=== PATIENT | female | born 1950 | race Hispanic/Latino ===

== ENCOUNTER 2018-11-22 11:22 | Emergency (ER) | payer SELFPAY ==
[~2018-11-22] VITALS: Ht 152.4 cm; Wt 68.9 kg
--- OUTSIDE RECORDS SUMMARY | 2018-11-22 11:28 | XMS REPORT | Summary of Care ---
Author Author [facility] Organization [facility] Address Unknown Phone Unavailable Encounter HQ Magaly_chandrika(FIN) [id number] Date(s): 07/10/17 - 07/11/17 [facility] [address], [address] [place] [address]- [phone] Vital Signs No data available for this section Problem List Condition Effective Dates Status Health Status Informant Hypertension, Active benign(Confirmed) Cardiac pacemaker in Active situ(Confirmed) Hx of Active hysterectomy(Confirm ed) Itching(Confirmed) Active Major Active depression(Confirmed ) Hyperlipidemia, Active mixed(Confirmed) Obesity(Confirmed) Active Right wrist Active pain(Confirmed) Palpitations(Confirm Active ed) Allergies, Adverse Reactions, Alerts Substance Reaction Severity Status lisinopril Active Ambien Active TraZODone Hydrochloride Active Medications hydrALAZINE 25 mg oral tablet 25 mg=1 tab, PO, Q8H, as needed if SBP>170 and DBP>100, # 270 tab, 1 Refill(s), Pharmacy: [facility] [id number] Start Date: 07/11/17 Stop Date: 08/13/17 Status: Discontinued hydrochlorothiazide 25 mg oral tablet 25 mg=1 tab, PO, Daily, # 90 tab, 1 Refill(s), Pharmacy: [facility] 06 600 Start Date: 07/11/17 Stop Date: 08/13/17 Status: Discontinued losartan 100 mg oral tablet 100 mg=1 tab, PO, Daily, # 90 tab, 1 Refill(s), Pharmacy: [facility] 0 [id number] Start Date: 07/11/17 Stop Date: 08/13/17 Status: Discontinued metoprolol tartrate 50 mg oral tablet 50 mg=1 tab, PO, BID, # 180 tab, 1 Refill(s), Pharmacy: [facility] 066 [id number] Start Date: 07/11/17 Stop Date: 08/13/17 Status: Discontinued sertraline 50 mg oral tablet 50 mg=1 tab, PO, Daily, # 90 tab, 1 Refill(s), Pharmacy: [facility] Start Date: 07/11/17 Stop Date: 08/13/17 Status: Discontinued simvastatin 20 mg oral tablet 20 mg=1 tab, PO, Daily, # 90 tab, 1 Refill(s), Pharmacy: [facility] 135 Start Date: 07/11/17 Stop Date: 08/13/17 Status: Discontinued Results No data available for this section Immunizations Given and Recorded Vaccine Date Status Refusal Reason pneumococcal 13-valent vaccine1 04/18/17 Given 1Result Comment: Patient waited 15 minutes, no allergic reaction. Procedures Procedure Date Related Diagnosis Body Site Status Mammogram 09/17/17 Completed Pacemaker care Completed Partial hysterectomy Completed Social History Social History Type Response Substance Abuse Use: None. Exercise Exercise duration: 30. Exercise frequency: 5-6 times/week. Exercise type: Walking. Alcohol Never Smoking Status Never smoker; Type: Cigarettes; Exposure to Tobacco Smoke None; Cigarette Smoking Last 365 Days No; Reg Smoking Cessation Counseling No entered on: 08/13/17 Assessment and Plan No data available for this section
--- OUTSIDE RECORDS SUMMARY | 2018-11-22 11:28 | XMS REPORT ---
Author Author Senia Borges Organization [employer] Address Unknown Phone Unavailable Care Team Providers Care Pathology Secretary/Transcriptionist Name Role Phone Senia Borges Unavailable Allergies, Adverse Reactions, Alerts Substance Reaction Event Type Trazodone HCl Info Not Available Drug Allergy Lisinopril Info Not Available Drug Allergy Ambien Info Not Available Drug Allergy Encounters Encounter Location Date New patient here to [facility] Apr 12, 2015 patient here to follow up on labs [facility] Apr 21, 2015 Patient here for check up [facility] Jul 12, 2015 Problems Problem Type Condition ICD-9 Code Onset Dates Condition Status Problem Chronic pain G89.29 Active Problem Insomnia G47.00 Active Problem Arthritis M19.90 Active Problem Depression with anxiety F41.8 Active Problem Low vitamin D level E55.9 Active Problem Dizziness R42 Active Problem Hyperlipidemia E78.5 Active Problem Depression F32.9 Active Problem Pacemaker Z95.0 Active Problem Hypertension I10 Active Assessment Dizziness R42 Active Assessment Pacemaker Z95.0 Active Assessment Hyperlipidemia E78.5 Active Assessment Depression F32.9 Active Assessment Hypertension I10 Active Medications Medication Code System Code Instructions Start Date End Date Status Dosage Losartan Potassium [facility] [address]-51 25 MG Orally Once a day Active 3 tablets Metoprolol Tartrate [facility] [address]-58 25 MG Orally Twice a day Active 1 tablet Ergocalciferol [facility] [address]-86 20832 UNIT Orally once a week Apr 21, 2015 Jul 20, 2015 Active 1 capsule Sertraline HCl [facility] [address]-85 100 mg Orally Once a day Active 1 tablet HydrOXYzine HCl [facility] [address]-66 10 mg Orally every 8 hrs as needed Apr 21, 2015 Active as directed Hydrochlorothiazide [facility] [address]-24 25 MG Orally Once a day Active 1 tablet Simvastatin [facility] [address]-61 20 mg Orally Once a day Active 1 tablet in the evening Social History Social History Element Qualifiers Date Reported Tobacco Use: . Are you a: never smoker Jul 12, 2015 Use of recreational / street drugs? . Answer: No Jul 12, 2015 Do you have pets? . Status: No Jul 12, 2015 Caffeine intake? . Status: Yes, What type: Coffee, How often? Daily Jul 12, 2015 Do you exercise? . Answer: Yes, Type: walking, How often? Daily Jul 12, 2015 Do you drink alcohol? . Status: No Jul 12, 2015 Vital Signs Date/Time: Jul 12, 2015 Weight 153.2 lbs Height 60 in Temperature 98.5 F Cardiac Monitoring Heart Rate 73 /min Blood Pressure Diastolic 83 mm Hg Blood Pressure Systolic 169 mm Hg Summary Purpose [employer] Submission
--- OUTSIDE RECORDS SUMMARY | 2018-11-22 11:28 | XMS REPORT | Summary of Care ---
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(Confirmed) Left cervical Active lymphadenopathy(Conf irmed) Hx of Active hysterectomy(Confirm ed) Itching(Confirmed) Active Major Active depression(Confirmed ) Hyperlipidemia, Active mixed(Confirmed) Obesity(Confirmed) Active Right wrist Active pain(Confirmed) Palpitations(Confirm Active ed) Allergies, Adverse Reactions, Alerts Substance Reaction Severity Status lisinopril Active Ambien Active TraZODone Hydrochloride Active Medications No data available for this section Results No data available for this section Immunizations Given and Recorded Vaccine Date Status Refusal Reason pneumococcal 13-valent vaccine1 04/18/17 Given 1Result Comment: Patient waited 15 minutes, no allergic reaction. Procedures Procedure Date Related Diagnosis Body Site Status Replacement of cardiac pacemaker 03/15/18 Completed Mammogram 09/17/17 Completed Pacemaker care Completed Partial hysterectomy Completed Social History Social History Type Response Substance Abuse Use: None. Exercise Exercise duration: 30. Exercise frequency: 5-6 times/week. Exercise type: Walking. Alcohol Never Smoking Status Never smoker; Type: Cigarettes; Exposure to Tobacco Smoke None; Cigarette Smoking Last 365 Days No; Reg Smoking Cessation Counseling No entered on: 04/15/18 Assessment and Plan No data available for this section
--- OUTSIDE RECORDS SUMMARY | 2018-11-22 11:28 | XMS REPORT | Summary of Care ---
Author Author [facility] Organization [facility] Address Unknown Phone Unavailable Encounter HQ Encntr_alivishal(FIN) [id number] Date(s): 11/01/18 - 11/02/18 [facility] 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(Confirmed) Left cervical Active lymphadenopathy(Conf irmed) Hx of Active hysterectomy(Confirm ed) Itching(Confirmed) Active Major Active depression(Confirmed ) Hyperlipidemia, Active mixed(Confirmed) Obesity(Confirmed) Active Left leg Active pain(Confirmed) Right wrist Active pain(Confirmed) Palpitations(Confirm Active ed) Allergies, Adverse Reactions, Alerts Substance Reaction Severity Status lisinopril Active Ambien Active TraZODone Hydrochloride Active Medications hydrochlorothiazide 25 mg oral tablet =1 tab, PO, Daily, # 90 tab, [facility] Start Date: 11/01/18 Status: Ordered Metoprolol Tartrate 50 mg oral tablet =1 tab, PO, BID, # 180 tab, [facility] Start Date: 11/01/18 Status: Ordered simvastatin 20 mg oral tablet =1 tab, PO, Daily, # 90 tab, Pharm[facility] Start Date: 11/01/18 Status: Ordered Results No data available for this section [...] Reg Smoking Cessation Counseling No entered on: 08/13/18 Assessment and Plan No data available for this section
--- OUTSIDE RECORDS SUMMARY | 2018-11-22 11:28 | XMS REPORT | Summary of Care ---
Author Author [facility] Organization [facility] Address Unknown Phone Unavailable Encounter HQ Kenzie(FIN) [id number] Date(s): 08/13/18 - 08/13/18 [facility] [address], [address] [place] [address]- [phone] Discharge Disposition: Home or Self Care Attending Physician: Blossom Romero MD Vital Signs Most recent to 1 oldest [Reference Range]: Height 152.4 cm (08/13/18 8:10 AM) Temperature Oral 97.9 DegF [96.4-99.1 DegF] (08/13/18 8:10 AM) Blood Pressure 158/84 mmHg [90-140/60-90 mmHg] *HI* (08/13/18 8:10 AM) Respiratory Rate 14 BRMIN [14-20 BRMIN] (08/13/18 8:10 AM) Peripheral Pulse 60 bpm Rate [60-100 bpm] (08/13/18 8:10 AM) Weight 69.659 kg (08/13/18 8:10 AM) Body Mass Index 29.99 m2 (08/13/18 8:10 AM) Problem List Condition Effective Dates Status Health [...] Ambien Active TraZODone Hydrochloride Active Medications No Known Medications Results No data available for this section [...]
--- OUTSIDE RECORDS SUMMARY | 2018-11-22 11:28 | XMS REPORT | Continuity of Care Document ---
Author Author [facility] Interface Address Unknown Phone Unavailable Problems Problem Status Onset Date Classification Date Reported Comments Source Hypertension Active Problem 07/14/2015 [facility] [place] [facility] Arthritis Active Problem 07/14/2015 [facility] [place] [facility] Chronic pain Active Problem 07/14/2015 [facility] [place] [facility] Low vitamin D level Active Problem 07/14/2015 [facility] [place] [facility] Primary Pacemaker Active Problem 07/14/2015 [facility] Primary Depression with anxiety Active Problem 07/14/2015 [facility] Depression Active Problem 07/14/2015 [facility] Insomnia Active Problem 07/14/2015 [facility] Primary Hyperlipidemia Active Problem 07/14/2015 [facility] Primary UTI Active Diagnosis 04/22/2015 [facility] Primary Breast cancer screening Active Diagnosis 04/13/2015 [facility] Primary Dizziness Active Problem 07/14/2015 [facility] Hypertension, benign Active Problem 11/04/2018 [facility] Cardiac pacemaker in situ Active Problem 11/04/2018 [facility] Left cervical lymphadenopathy Active Problem 11/04/2018 [facility] Hx of hysterectomy Active Problem 11/04/2018 [facility] Itching Active Problem 11/04/2018 [facility] Major depression Active Problem 11/04/2018 [facility] Hyperlipidemia, mixed Active Problem 11/04/2018 [facility] Obesity Active Problem 11/04/2018 [facility] Right wrist pain Active Problem 11/04/2018 [facility] Palpitations Active Problem 11/04/2018 [facility] Left leg pain Active Problem 11/04/2018 [facility] Medications Medication Details Route Status Patient Instructions Ordering Provider Order Date Source Hydrochlorothiazide 25 MG Oral Tablet =1 tab, PO, Daily, # 90 tab, Pharmacy: [facility] Active 11/02/2018 [facility] simvastatin 20 mg oral tablet =1 tab, PO, Daily, # 90 tab, [facility]/02/2018 [facility] Metoprolol Tartrate 50 mg oral tablet =1 tab, PO, BID, # 180 tab, [facility] 11/02/2018 [facility] simvastatin 20 mg oral tablet 20 mg=1 tab, PO, Daily, # 90 tab, 1 Refill(s), Pharmacy: [facility] No Longer Active 04/15/2018 [facility] sertraline 50 mg oral tablet 50 mg=1 tab, PO, Daily, # 90 tab, 1 Refill(s), Pharmacy: [facility] No Longer Active 04/15/2018 [facility] Metoprolol Tartrate 50 mg oral tablet 50 mg=1 tab, PO, BID, # 180 tab, 1 Refill(s), Pharmacy: [facility] No Longer Active 04/15/2018 [facility] losartan 100 mg oral tablet 100 mg=1 tab, PO, Daily, # 90 tab, 1 Refill(s), Pharmacy: [facility] Active 04/15/2018 [facility] Hydrochlorothiazide 25 MG Oral Tablet 25 mg=1 tab, PO, Daily, # 90 tab, 1 Refill(s), Pharmacy: [facility] No Longer Active 04/15/2018 [facility] Hydralazine Hydrochloride 25 MG Oral Tablet 25 mg=1 tab, PO, Q8H, as needed if SBP>170 and DBP>100, # 270 tab, 1 Refill(s), Pharmacy: [facility] Active 04/15/2018 [facility] Clobetasol Propionate 0.0005 MG/MG Topical Ointment 1 appl, TOP, Daily, # 30 gm, 1 Refill(s), [id number] 08/13/2017 [facility] simvastatin 20 mg oral tablet 20 mg=1 tab, PO, Daily, # 90 tab, 1 Refill(s), Pharmacy: [facility] Active 08/13/2017 [facility] sertraline 50 mg oral tablet 50 mg=1 tab, PO, Daily, # 90 tab, 1 Refill(s), Pharmacy: [facility] Active 08/13/2017 [facility] metoprolol tartrate 50 mg oral tablet 50 mg=1 tab, PO, BID, # 180 tab, 1 Refill(s), Pharmacy: [facility] Active 08/13/2017 [facility] losartan 100 mg oral tablet 100 mg=1 tab, PO, Daily, # 90 tab, 1 Refill(s), Pharmacy: [facility] Active 08/13/2017 [facility] Hydrochlorothiazide 25 MG Oral Tablet 25 mg=1 tab, PO, Daily, # 90 tab, 1 Refill(s), Pharmacy: [facility] Active 08/13/2017 [facility] Hydralazine Hydrochloride 25 MG Oral Tablet 25 mg=1 tab, PO, Q8H, as needed if SBP>170 and DBP>100, # 270 tab, 1 Refill(s), Pharmacy: [facility] Active 08/13/2017 [facility] simvastatin 20 mg oral tablet 20 mg=1 tab, PO, Daily, # 90 tab, 1 Refill(s), Pharmacy: [id number] No Longer Active 07/11/2017 [facility] losartan 100 mg oral tablet 100 mg=1 tab, PO, Daily, # 90 tab, 1 Refill(s), Pharmacy: [id number] No Longer Active 07/11/2017 [facility] sertraline 50 mg oral tablet 50 mg=1 tab, PO, Daily, # 90 tab, 1 Refill(s), Pharmacy: [facility] [id number] No Longer Active 07/11/2017 [facility] metoprolol tartrate 50 mg oral tablet 50 mg=1 tab, PO, BID, # 180 tab, 1 Refill(s), Pharmacy: [facility] [id number] No Longer Active 07/11/2017 [facility] Hydrochlorothiazide 25 MG Oral Tablet 25 mg=1 tab, PO, Daily, # 90 tab, 1 Refill(s), Pharmacy: [facility] [id number] No Longer Active 07/11/2017 [facility] Hydralazine Hydrochloride 25 MG Oral Tablet 25 mg=1 tab, PO, Q8H, as needed if SBP>170 and DBP>100, # 270 tab, 1 Refill(s), Pharmacy: [facility] [id number] No Longer Active 07/11/2017 [facility] metoprolol tartrate 50 mg oral tablet 50 mg=1 tab, PO, BID, 0 Refill(s) Active 04/18/2017 [facility] Hydralazine Hydrochloride 25 MG Oral Tablet 25 mg=1 tab, PO, Q8H, as needed if SBP>170 and DBP>100, 0 Refill(s) Active 04/18/2017 [facility] HydrOXYzine HCl as directed Orally Active 10 mg Orally every 8 hrs as needed [facility] 04/21/[address] [facility] Ciprofloxacin HCl 1 tablet Orally Active 500 mg Orally Twice a day [facility] 04/21/[address] [facility] Ergocalciferol 1 capsule Orally Active 57643 UNIT Orally once a week [facility] 04/21/[address] [facility] Hydrochlorothiazide 1 tablet Orally Active 25 MG Orally Once a day [facility] Sertraline HCl 1 tablet Orally Active 100 mg Orally Once a day [facility] Clonazepam 1 tablet Orally No Longer Active 0.5 MG Orally as needed (prn) [facility] Losartan Potassium 3 tablets Orally Active 25 MG Orally Once a day [facility] Metoprolol Tartrate 1 tablet Orally Active 25 MG Orally Twice a day [facility] Simvastatin 1 tablet in the evening Orally Active 20 mg Orally Once a day [facility] Sertraline HCl 1 tablet Orally Active 50 MG Orally Once a day [facility] Allergies, Adverse Reactions, Alerts Substance Category Reaction Severity Reaction type Status Date Reported Comments Source Trazodone HCl Adverse Reaction Info Not Available Adverse Reaction Active 07/12/[address] [facility] Lisinopril Adverse Reaction Info Not Available Adverse Reaction Active 07/12/[address] [facility] Ambien Assertion Drug allergy Active [facility] lisinopril Assertion Drug allergy Active [facility] TraZODone Hydrochloride Assertion Drug allergy Active [facility] Immunizations Immunization Date Given Site Status Last Updated Comments Source pneumococcal 13-valent vaccine<sup>1</sup> 04/18/2017 Left Deltoid completed [place] Result Comment: Patient waited 15 minutes, no allergic reaction. [facility] Results Order Name Results Value Reference Range Date Interpretation Comments Source Vital Signs Vital Sign Value Date Comments Source BMI Calculated 29.99 08/13/2018 [facility] Weight 69.659 08/13/2018 [facility] Height 152.4 cm 08/13/2018 [facility] Systolic (mm Hg) 158 08/13/2018 [facility] Diastolic (mm Hg) 84 08/13/2018 [facility] Heart Rate 60 08/13/2018 [facility] Respitory Rate 14 08/13/2018 [facility] Temperature Oral (F) 97.9 F 08/13/2018 [facility] Height 152.4 cm 04/15/2018 [facility] Weight 69.659 04/15/2018 [facility] BMI Calculated 29.99 04/15/2018 [facility] Systolic (mm Hg) 148 04/15/2018 [facility] Diastolic (mm Hg) 84 04/15/2018 [facility] Heart Rate 62 04/15/2018 [facility] Temperature Oral (F) 98.2 F 04/15/2018 [facility] Respitory Rate 15 04/15/2018 [facility] BMI Calculated 29.82 12/17/2017 [facility] Height 152.4 cm 12/17/2017 [facility] Weight 69.261 12/17/2017 [facility] Respitory Rate 14 12/17/2017 [facility] Temperature Oral (F) 97.8 F 12/17/2017 [facility] Systolic (mm Hg) 152 12/17/2017 [facility] Diastolic (mm Hg) 84 12/17/2017 [facility] Heart Rate 60 12/17/2017 [facility] BMI Calculated 29.58 08/13/2017 [facility] Weight 68.693 08/13/2017 [facility] Height 152.4 cm 08/13/2017 [facility] Temperature Oral (F) 96.6 F 08/13/2017 [facility] Respitory Rate 14 08/13/2017 [facility] Heart Rate 60 08/13/2017 [facility] Systolic (mm Hg) 165 08/13/2017 [facility] Diastolic (mm Hg) 85 08/13/2017 [facility] Height 152.4 cm 04/18/2017 [facility] Weight 69.261 04/18/2017 [facility] BMI Calculated 29.82 04/18/2017 [facility] Temperature Oral (F) 97.0 F 04/18/2017 [facility] Heart Rate 60 04/18/2017 [facility] Respitory Rate 14 04/18/2017 [facility] Systolic (mm Hg) 150 04/18/2017 [facility] Diastolic (mm Hg) 81 04/18/2017 [facility] Weight 153.2 07/12/2015 [facility] Height 60 07/12/2015 [facility] Temperature Oral (F) 98.5 F 07/12/2015 [facility] Heart Rate 73 07/12/2015 [facility] Diastolic (mm Hg) 83 07/12/2015 [facility] Systolic (mm Hg) 169 07/12/2015 [facility] Weight 154.0 04/21/2015 [facility] Height 60 04/21/2015 [facility] Temperature Oral (F) 98.7 F 04/21/2015 [facility] Heart Rate 96 04/21/2015 [facility] Diastolic (mm Hg) 78 04/21/2015 [facility] Systolic (mm Hg) 126 04/21/2015 [facility] Weight 152.9 04/12/2015 [facility] Height 60 04/12/2015 [facility] Temperature Oral (F) 98.5 F 04/12/2015 [facility] Heart Rate 82 04/12/2015 [facility] Diastolic (mm Hg) 80 04/12/2015 [facility] Systolic (mm Hg) 136 04/12/2015 [facility] Encounters Location Location Details Encounter Type Encounter Number Reason For Visit Attending Provider ADM Date DC Date Status Source [facility] New patient here to est care [id number] 04/12/2015 04/12/2015 [facility] New patient here to est care [id number] 04/12/2015 04/12/2015 [facility] New patient here to est care [id number] 04/12/2015 04/12/2015 [facility] Care patient here to follow up on labs [id number] 04/21/2015 04/21/2015 [facility] Primary Care patient here to follow up on labs [id number] 04/21/2015 04/21/2015 [facility] Patient here for check up [id number] 07/12/2015 07/12/2015 [facility] Outpatient [id number] JEFF STARK 12/28/2015 Active [facility] Outpatient [id number] JEFF STARK 05/01/2016 Active [facility] [id number] JEFF STARK 08/28/2016 [facility] [id number] JEFF STARK 12/27/2016 [facility] [id number] JEFF STARK 04/18/2017 Active [facility] [id number] Jeff Stark 04/18/2017 04/19/2017 [facility] Group [facility] Primary Care [facility] Phone Message [id number] 07/10/2017 07/12/2017 [facility] Outpatient [id number] JEFF STARK 08/13/2017 [facility] [id number] Jeff Stark 08/13/2017 08/14/2017 [facility] Outpatient [id number] JEFF STARK 12/17/2017 Active [facility] Primary Care [facility] Outpatient [id number] Jeff Stark 12/17/2017 12/18/2017 [facility] Group [facility] Primary Care [facility] Phone Message [id number] 01/09/2018 01/11/2018 [facility] Outpatient [id number] JEFF STARK 04/15/2018 Active [facility] [id number] Jeff Stark 04/15/2018 04/16/2018 [facility] Outpatient [id number] JEFF STARK 08/13/2018 Active [facility] Primary Care [facility] Outpatient [id number] Jeff Stark 08/13/2018 08/14/2018 Medical Group [facility] Primary Care [facility] Phone Message [id number] 09/06/2018 09/08/2018 [facility] Group [facility] Primary Care [facility] Between Visit [id number] 11/02/2018 11/03/2018 [facility] Outpatient [id number] JEFF STARK 12/17/2018 Active [facility] Procedures Procedure Code Date Perfomer Comments Source Replacement of cardiac pacemaker [id number] 03/15/2018 [facility] Mammogram [id number] 09/17/2017 [facility] Mammogram [id number] 09/11/2016 [facility] Pacemaker care [id number] [facility] Partial hysterectomy [id number] [facility]
--- OUTSIDE RECORDS SUMMARY | 2018-11-22 11:28 | XMS REPORT | Summary of Care ---
Author Author [facility] Organization [facility] Address Unknown Phone Unavailable Encounter HQ Magaly_chandrika(FIN) [id number] Date(s): 12/17/17 - 12/17/17 [facility] [address], [address] [place] [address]- [phone] Discharge Disposition: Home or Self Care Attending Physician: Blossom Romero MD Vital Signs Most recent to 1 oldest [Reference Range]: Height 152.4 cm (12/17/17 8:19 AM) Temperature Oral 97.8 DegF [96.4-99.1 DegF] (12/17/17 8:19 AM) Blood Pressure 152/84 mmHg [90-140/60-90 mmHg] *HI* (12/17/17 8:19 AM) Respiratory Rate 14 BRMIN [14-20 BRMIN] (12/17/17 8:19 AM) Peripheral Pulse 60 bpm Rate [60-100 bpm] (12/17/17 8:19 AM) Weight 69.261 kg (12/17/17 8:19 AM) Body Mass Index 29.82 m2 (12/17/17 8:19 AM) Problem List Condition Effective Dates Status [...]
--- OUTSIDE RECORDS SUMMARY | 2018-11-22 11:28 | XMS REPORT | Summary of Care ---
Author Author [facility] Organization [facility] Address Unknown Phone Unavailable Encounter HQ Kenzie(FIN) [id number] Date(s): 04/18/17 - 04/18/17 [facility] [address], [address] [place] [address]- [phone] Discharge Disposition: Home or Self Care Attending Physician: Blossom Romero MD Vital Signs Most recent to 1 oldest [Reference Range]: Height 152.4 cm (04/18/17 8:06 AM) Temperature Oral 97.0 DegF [96.4-99.1 DegF] (04/18/17 8:06 AM) Blood Pressure 150/81 mmHg [90-140/60-90 mmHg] *HI* (04/18/17 8:06 AM) Respiratory Rate 14 BRMIN [14-20 BRMIN] (04/18/17 8:06 AM) Peripheral Pulse 60 bpm Rate [60-100 bpm] (04/18/17 8:06 AM) Weight 69.261 kg (04/18/17 8:06 AM) Body Mass Index 29.82 m2 (04/18/17 8:06 AM) Problem List Condition Effective Dates Status Health Status Informant Hypertension, Active benign(Confirmed) Cardiac pacemaker in Active situ(Confirmed) Hx of Active hysterectomy(Confirm ed) Itching(Confirmed) Active Major Active depression(Confirmed ) Hyperlipidemia, Active mixed(Confirmed) Obesity(Confirmed) Active Palpitations(Confirm Active ed) Allergies, Adverse Reactions, Alerts Substance Reaction Severity Status lisinopril Active Ambien Active TraZODone Hydrochloride Active Medications hydrALAZINE 25 mg oral tablet 25 mg=1 tab, PO, Q8H, as needed if SBP>170 and DBP>100, 0 Refill(s) Start Date: 04/18/17 Status: Ordered metoprolol tartrate 50 mg oral tablet 50 mg=1 tab, PO, BID, 0 Refill(s) Start Date: 04/18/17 Status: Ordered Results No data available for this section Immunizations Given and Recorded Vaccine Date Status Refusal Reason pneumococcal 13-valent vaccine1 04/18/17 Given 1Result Comment: Patient waited 15 minutes, no allergic reaction. Procedures Procedure Date Related Diagnosis Body Site Mammogram 09/11/16 Pacemaker care Partial hysterectomy Social History Social History Type Response Substance Abuse Use: None. Exercise Exercise duration: 30. Exercise frequency: 5-6 times/week. Exercise type: Walking. Alcohol Never Smoking Status Never smoker; Type: Cigarettes; Exposure to Tobacco Smoke None; Cigarette Smoking Last 365 Days No; Reg Smoking Cessation Counseling No Assessment and Plan No data available for this section
--- OUTSIDE RECORDS SUMMARY | 2018-11-22 11:28 | XMS REPORT | Summary of Care ---
Author Author [facility] Organization [facility] Address Unknown Phone Unavailable Encounter HQ Kenzie(FIN) [id number] Date(s): 04/15/18 - 04/15/18 [facility] [address] [place] [address]- Discharge Disposition: Home or Self Care Attending Physician: Blossom Romero MD Vital Signs Most recent to 1 oldest [Reference Range]: Height 152.4 cm (04/15/18 8:14 AM) Temperature Oral 98.2 DegF [96.4-99.1 DegF] (04/15/18 8:14 AM) Blood Pressure 148/84 mmHg [90-140/60-90 mmHg] *HI* (04/15/18 8:14 AM) Respiratory Rate 15 BRMIN [14-20 BRMIN] (04/15/18 8:14 AM) Peripheral Pulse 62 bpm Rate [60-100 bpm] (04/15/18 8:14 AM) Weight 69.659 kg (04/15/18 8:14 AM) Body Mass Index 29.99 m2 (04/15/18 8:14 AM) Problem List Condition Effective Dates Status [...] DBP>100, # 270 tab, 1 Refill(s), Pharmacy: [facility] Start Date: 04/15/18 Status: Ordered hydrochlorothiazide 25 mg oral tablet 25 mg=1 tab, PO, Daily, # 90 tab, 1 Refill(s), Pharmacy: [facility] Start Date: 04/15/18 Stop Date: 11/01/18 Status: Completed losartan 100 mg oral tablet 100 mg=1 tab, PO, Daily, # 90 tab, 1 Refill(s), Pharmacy: [facility] Start Date: 04/15/18 Status: Ordered Metoprolol Tartrate 50 mg oral tablet 50 mg=1 tab, PO, BID, # 180 tab, 1 Refill(s), Pharmacy: [facility] Start Date: 04/15/18 Stop Date: 11/01/18 Status: Completed sertraline 50 mg oral tablet 50 mg=1 tab, PO, Daily, # 90 tab, 1 Refill(s), Pharmacy: [facility] Start Date: 04/15/18 Stop Date: 08/13/18 Status: Discontinued simvastatin 20 mg oral tablet 20 mg=1 tab, PO, Daily, # 90 tab, 1 Refill(s), Pharmacy: [facility] Start Date: 04/15/18 Stop Date: 11/01/18 Status: Completed Results No data available for this section [...]
--- OUTSIDE RECORDS SUMMARY | 2018-11-22 11:28 | XMS REPORT | Summary of Care ---
Author Author [facility] Organization [facility] Address Unknown Phone Unavailable Encounter HQ Guzmanntr_alivishal(FIN) [id number] Date(s): 09/06/18 - 09/07/18 [facility] [address] [place] [address]- Vital Signs No data available for this [...]
--- OUTSIDE RECORDS SUMMARY | 2018-11-22 11:28 | XMS REPORT ---
Author Author Senia Borges Organization [employer] Address Unknown Phone Unavailable Care Team Providers Care Customer Engineering Specialist Name Role Phone Senia Borges Unavailable Allergies, Adverse Reactions, Alerts Substance Reaction Event Type Trazodone HCl Info Not Available Drug Allergy Lisinopril Info Not Available Drug Allergy Ambien Info Not Available Drug Allergy Encounters Encounter Location Date New patient here to [facility] Apr 12, 2015 Problems Problem Type Condition ICD-9 Code Onset Dates Condition Status Assessment Colon cancer screening Z12.11 Active Assessment Annual physical exam Z00.00 Active Assessment Breast cancer screening Z12.39 Active Problem Hypertension I10 Active Problem Hyperlipidemia E78.5 Active Problem Pacemaker Z95.0 Active Problem Arthritis M19.90 Active Problem Chronic pain G89.29 Active Problem Depression F32.9 Active Problem Insomnia G47.00 Active Assessment Chronic pain G89.29 Active Assessment Depression F32.9 Active Assessment Hyperlipidemia E78.5 Active Assessment Arthritis M19.90 Active Assessment Hypertension I10 Active Assessment Insomnia G47.00 Active Assessment Pacemaker Z95.0 Active Medications Medication Code System Code Instructions Start Date End Date Status Dosage Sertraline HCl [facility] [address]-41 50 MG Orally Once a day Active 1 tablet Hydrochlorothiazide [facility] [address]-20 25 MG Orally Once a day Active 1 tablet Simvastatin [facility] [address]-05 20 MG Orally Once a day Active 1 tablet in the evening Losartan Potassium [facility] [address]-24 25 MG Orally Once a day Active 3 tablets Social History Social History Element Qualifiers Date Reported Tobacco Use: . Are you a: never smoker Apr 12, 2015 Use of recreational / street drugs? . Answer: No Apr 12, 2015 Do you have pets? . Status: No Apr 12, 2015 Caffeine intake? . Status: Yes, What type: Coffee, How often? Daily Apr 12, 2015 Do you exercise? . Answer: Yes, Type: walking, How often? Daily Apr 12, 2015 Do you drink alcohol? . Status: No Apr 12, 2015 Vital Signs Date/Time: Apr 12, 2015 Weight 152.9 lbs Height 60 in Temperature 98.5 F Cardiac Monitoring Heart Rate 82 /min Blood Pressure Diastolic 80 mm Hg Blood Pressure Systolic 136 mm Hg Summary Purpose [employer] Submission
--- OUTSIDE RECORDS SUMMARY | 2018-11-22 11:28 | XMS REPORT ---
[facility] Address Unknown Phone Unavailable Care Team Providers Care Deck Specialist Name Role Phone Unavailable Unavailable Payers Payer Name Policy Type Policy Number Effective Date Expiration Date Problems This patient has no known problems. Allergies, Adverse Reactions, Alerts Allergy Name Allergy Type Status Severity Reaction(s) Onset Date Inactive Date Treating Clinician Comments vitamin E (d-alpha tocopherol) DA Active SV 2018-02-25 00:00:00 LAKE Inhibitors DA Active U 2018-02-22 00:00:00 lisinopril DA Active U 2018-02-22 00:00:00 zolpidem DA Active U 2018-02-22 00:00:00 trazodone DA Active U 2018-02-22 00:00:00 No Known Allergies DA Active U 2017-04-13 00:00:00 Medications This patient has no known medications.
--- OUTSIDE RECORDS SUMMARY | 2018-11-22 11:28 | XMS REPORT | Summary of Care ---
Author Author [facility] Primary [facility] Organization [facility] Address Unknown Phone Unavailable Encounter HQ [facility](FIN) [id number] Date(s): 08/13/17 - 08/13/17 [facility] [address], [address] [place] [address]- [phone] Discharge Disposition: Home or Self Care Attending Physician: Blossom Romero MD Vital Signs Most recent to 1 oldest [Reference Range]: Height 152.4 cm (08/13/17 8:25 AM) Temperature Oral 96.6 DegF [96.4-99.1 DegF] (08/13/17 8:25 AM) Blood Pressure 165/85 mmHg [90-140/60-90 mmHg] *HI* (08/13/17 8:25 AM) Respiratory Rate 14 BRMIN [14-20 BRMIN] (08/13/17 8:25 AM) Peripheral Pulse 60 bpm Rate [60-100 bpm] (08/13/17 8:25 AM) Weight 68.693 kg (08/13/17 8:25 AM) Body Mass Index 29.58 m2 (08/13/17 8:25 AM) Problem List Condition Effective Dates Status Health Status Informant Hypertension, Active benign(Confirmed) Cardiac pacemaker in Active situ(Confirmed) Hx of Active hysterectomy(Confirm ed) Itching(Confirmed) Active Major Active depression(Confirmed ) Hyperlipidemia, Active mixed(Confirmed) Obesity(Confirmed) Active Right wrist Active pain(Confirmed) Palpitations(Confirm Active ed) Allergies, Adverse Reactions, Alerts Substance Reaction Severity Status lisinopril Active Ambien Active TraZODone Hydrochloride Active Medications clobetasol topical 0.05% ointment 1 appl, TOP, Daily, # 30 gm, 1 Refill(s), Pharmacy: [id number] Start Date: 08/13/17 Stop Date: 08/13/18 Status: Ordered hydrALAZINE 25 mg oral tablet 25 mg=1 tab, PO, Q8H, as needed if SBP>170 and DBP>100, # 270 tab, 1 Refill(s), Pharmacy: [facility] Start Date: 08/13/17 Status: Ordered hydrochlorothiazide 25 mg oral tablet 25 mg=1 tab, PO, Daily, # 90 tab, 1 Refill(s), Pharmacy: [facility] Start Date: 08/13/17 Status: Ordered losartan 100 mg oral tablet 100 mg=1 tab, PO, Daily, # 90 tab, 1 Refill(s), Pharmacy: [facility] Start Date: 08/13/17 Status: Ordered metoprolol tartrate 50 mg oral tablet 50 mg=1 tab, PO, BID, # 180 tab, 1 Refill(s), Pharmacy: [facility] Start Date: 08/13/17 Status: Ordered sertraline 50 mg oral tablet 50 mg=1 tab, PO, Daily, # 90 tab, 1 Refill(s), Pharmacy: [facility] Start Date: 08/13/17 Status: Ordered simvastatin 20 mg oral tablet 20 mg=1 tab, PO, Daily, # 90 tab, 1 Refill(s), Pharmacy: [facility] Start Date: 08/13/17 Status: Ordered Results No data available for [...]
--- OUTSIDE RECORDS SUMMARY | 2018-11-22 11:28 | XMS REPORT ---
Author Author Senia Borges Organization [employer] Address Unknown Phone Unavailable Care Team Providers Care Crm Marketing Manager Name Role Phone Senia Borges Unavailable Allergies, Adverse Reactions, Alerts Substance Reaction Event Type Trazodone HCl Info Not Available Drug Allergy Lisinopril Info Not Available Drug Allergy Ambien Info Not Available Drug Allergy Encounters Encounter Location Date New patient here to formerly [facility] Apr 12, 2015 patient here to follow up on [facility] Apr 21, 2015 Problems Problem Type Condition ICD-9 Code Onset Dates Condition Status Assessment Hypertension I10 Active Problem Arthritis M19.90 Active Problem Chronic pain G89.29 Active Problem Low vitamin D level E55.9 Active Problem Pacemaker Z95.0 Active Problem Depression with anxiety F41.8 Active Problem Depression F32.9 Active Problem Insomnia G47.00 Active Problem Hypertension I10 Active Problem Hyperlipidemia E78.5 Active Assessment UTI (urinary tract infection) N39.0 Active Assessment Low vitamin D level E55.9 Active Assessment Depression with anxiety F41.8 Active Assessment Hyperlipidemia E78.5 Active Medications Medication Code System Code Instructions Start Date End Date Status Dosage HydrOXYzine HCl [facility] [address]-72 10 mg Orally every 8 hrs as needed Apr 21, 2015 Active as directed Hydrochlorothiazide [facility] [address]-55 25 MG Orally Once a day Active 1 tablet Ciprofloxacin HCl [facility] [address]-10 500 mg Orally Twice a day Apr 21, 2015 Apr 24, 2015 Active 1 tablet Sertraline HCl [facility] [address]-79 100 MG Orally Once a day Active 1 tablet Clonazepam [facility] [address]-00 0.5 MG Orally as needed (prn) Inactive 1 tablet Losartan Potassium [facility] [address]-18 25 MG Orally Once a day Active 3 tablets Metoprolol Tartrate [facility] [address]-08 25 MG Orally Twice a day Active 1 tablet Ergocalciferol [facility] [address]-81 07046 UNIT Orally once a week Apr 21, 2015 Jul 20, 2015 Active 1 capsule Simvastatin [facility] [address]-81 20 mg Orally Once a day Active 1 tablet in the evening Social History Social History Element Qualifiers Date Reported Tobacco Use: . Are you a: never smoker Apr 21, 2015 Use of recreational / street drugs? . Answer: No Apr 21, 2015 Do you have pets? . Status: No Apr 21, 2015 Caffeine intake? . Status: Yes, What type: Coffee, How often? Daily Apr 21, 2015 Do you exercise? . Answer: Yes, Type: walking, How often? Daily Apr 21, 2015 Do you drink alcohol? . Status: No Apr 21, 2015 Vital Signs Date/Time: Apr 21, 2015 Weight 154.0 lbs Height 60 in Temperature 98.7 F Cardiac Monitoring Heart Rate 96 /min Blood Pressure Diastolic 78 mm Hg Blood Pressure Systolic 126 mm Hg Summary Purpose [employer] Submission
--- OUTSIDE RECORDS SUMMARY | 2018-11-22 11:28 | XMS REPORT | Summary of Care ---
Author Author [facility] Primary [facility] Organization [facility] Address Unknown Phone Unavailable Encounter [facility](FIN) [id number] Date(s): 08/13/17 - 08/13/17 [facility] [address], [address] [place] [address]- [phone] Discharge Disposition: Home or Self Care Attending [...] # 30 gm, 1 Refill(s), Pharmacy: [id number] Start Date: 08/13/17 Stop Date: 08/13/18 Status: Ordered hydrALAZINE 25 mg oral tablet 25 mg=1 tab, PO, Q8H, as needed if SBP>170 and DBP>100, # 270 tab, 1 Refill(s), Pharmacy: Pharmacy Start Date: 08/13/17 Status: Ordered hydrochlorothiazide 25 mg oral tablet 25 mg=1 tab, PO, Daily, # 90 tab, 1 Refill(s), Pharmacy: [facility] Start Date: 08/13/17 Status: Ordered losartan 100 mg oral tablet 100 mg=1 tab, PO, Daily, # 90 tab, 1 Refill(s), Pharmacy: [facility] Start Date: 08/13/17 Status: Ordered metoprolol tartrate 50 mg oral tablet 50 mg=1 tab, PO, BID, # 180 tab, 1 Refill(s), Pharmacy: Pharmacy Start Date: 08/13/17 Status: Ordered sertraline 50 mg oral tablet 50 mg=1 tab, PO, Daily, # 90 tab, 1 Refill(s), Pharmacy: [facility] Start Date: 08/13/17 Status: Ordered simvastatin 20 mg oral tablet 20 mg=1 tab, PO, Daily, # 90 tab, 1 Refill(s), Pharmacy: [facility] Start Date: 08/13/17 Status: Ordered Results No data available for this section Immunizations Given and Recorded Vaccine Date Status Refusal Reason pneumococcal 13-valent vaccine1 04/18/17 Given 1Result Comment: Patient waited 15 minutes, no allergic reaction. Procedures Procedure Date Related Diagnosis Body Site Status Mammogram 09/11/16 Completed Pacemaker care Completed Partial hysterectomy Completed [...]
[2018-11-22] MEDS ORDERED: IBUPROFEN 600 MG TAB PO ONE (12:30)
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
[2018-11-22 15:17] VITALS: BP 178/74
== END 2018-11-22 15:23 | disposition home or self-care (01) ==
LOC: ER 11:25
DX: M54.2 Cervicalgia (principal); S00.83XA Contusion of other part of head, initial encounter; M79.661 Pain in right lower leg; S80.11XA Contusion of right lower leg, initial encounter; M79.672 Pain in left foot; V43.52XA Car driver injured in collision with other type car in traffic accident, initial encounter; Y92.488 Other paved roadways as the place of occurrence of the external cause; I10 Essential (primary) hypertension; E11.9 Type 2 diabetes mellitus without complications
CPT/HCPCS: 70450; 71046; 72125; 99284

== ENCOUNTER 2019-02-10 12:02 | Observation (INO) | payer OTHER, MEDICARE ==
[~2019-02-10] VITALS: Ht 152.4 cm; Wt 68.0 kg
--- OUTSIDE RECORDS SUMMARY | 2019-02-10 12:05 | XMS REPORT | Continuity of Care Document ---
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 Phone [employer] Unavailable Unavailable Problems Problem Status Onset Date Classification Date Reported Comments Source Breast cancer screening Active Diagnosis 04/13/2015 [facility] Primary Hypertension Active Problem 07/14/2015 [facility] Primary Hyperlipidemia Active Problem 07/14/2015 [facility] Primary Pacemaker Active Problem 07/14/2015 [facility] Primary Arthritis Active Problem 07/14/2015 [facility] Primary Chronic pain Active Problem 07/14/2015 [facility] Primary Depression Active Problem 07/14/2015 [facility] Primary Insomnia Active Problem 07/14/2015 [facility] Primary Depression with anxiety Active Problem 07/14/2015 [facility] Primary Low vitamin D level Active Problem 07/14/2015 [facility] Primary Dizziness Active Problem 07/14/2015 [facility] Primary UTI (urinary tract infection) Active Diagnosis 04/22/2015 [facility] Primary Benign hypertension (disorder) Active Problem 12/19/2018 [facility] Cardiac pacemaker in situ (finding) Active Problem 12/19/2018 [facility] Cervical lymphadenopathy (disorder) Active Problem 12/19/2018 [facility] History of - hysterectomy (context-dependent category) Active Problem 12/19/2018 [facility] Itching (finding) Active Problem 12/19/2018 [facility] Major depressive disorder (disorder) Active Problem 12/19/2018 [facility] Mixed hyperlipidemia (disorder) Active Problem 12/19/2018 [facility] Obesity (disorder) Active Problem 12/19/2018 [facility] Pain in wrist (finding) Active Problem 12/19/2018 [facility] Palpitations (finding) Active Problem 12/19/2018 [facility] Pain in left leg (finding) Active Problem 12/19/2018 [facility] Medications Medication Details Route Status Patient Instructions Ordering Provider Order Date Source Hydrochlorothiazide 25 MG Oral Tablet =1 tab, PO, Daily, # 90 tab, [facility] Active 11/02/2018 [facility] simvastatin 20 mg oral tablet =1 tab, PO, Daily, # 90 tab, Pharmacy: [facility] Active 11/02/2018 [facility] Metoprolol Tartrate 50 mg oral tablet =1 tab, PO, BID, # 180 tab, Pharmacy: [facility] Active 11/02/2018 [facility] simvastatin 20 mg oral tablet 20 mg=1 tab, PO, Daily, # 90 tab, 1 Refill(s), Pharmacy: [facility] No Longer Active 04/15/2018 [facility] sertraline 50 mg oral tablet 50 mg=1 tab, PO, Daily, # 90 tab, 1 Refill(s), Pharmacy: [facility] No Longer Active 04/15/2018 [facility] Metoprolol Tartrate 50 mg oral tablet 50 mg=1 tab, PO, BID, # 180 tab, 1 Refill(s), Pharmacy: [facility] No Longer Active 04/15/2018 [facility] losartan 100 mg oral tablet 100 mg=1 tab, PO, Daily, # 90 tab, 1 Refill(s), Pharmacy: [facility] Active 04/15/2018 [facility] Hydrochlorothiazide 25 MG Oral Tablet 25 mg=1 tab, PO, Daily, # 90 tab, 1 Refill(s), Pharmacy: [facility] No Longer Active 04/15/2018 [facility] Hydralazine Hydrochloride 25 MG Oral Tablet 25 mg=1 tab, PO, Q8H, as needed if SBP>170 and DBP>100, # 270 tab, 1 Refill(s), Pharmacy: [facility] Active 04/15/2018 [facility] Clobetasol Propionate 0.0005 MG/MG Topical Ointment 1 appl, TOP, Daily, # 30 gm, 1 Refill(s), [id number]2017 [facility] simvastatin 20 mg oral tablet 20 mg=1 tab, PO, Daily, # 90 tab, 1 Refill(s), Pharmacy: [facility] Active 08/13/2017 [facility] sertraline 50 mg oral tablet 50 mg=1 tab, PO, Daily, # 90 tab, 1 Refill(s), Pharmacy: [facility] Active 08/13/2017 [facility] metoprolol tartrate 50 mg oral tablet 50 mg=1 tab, PO, BID, # 180 tab, 1 Refill(s), Pharmacy: [facility] Active 08/13/2017 [facility] losartan 100 mg oral tablet 100 mg=1 tab, PO, Daily, # 90 tab, 1 Refill(s), Pharmacy: [facility] Active 08/13/2017 [facility] Hydrochlorothiazide 25 MG Oral Tablet 25 mg=1 tab, PO, Daily, # 90 tab, 1 Refill(s), Pharmacy: [facility] Active 08/13/2017 [facility] Hydralazine Hydrochloride 25 MG Oral Tablet 25 mg=1 tab, PO, Q8H, as needed if SBP>170 and DBP>100, # 270 tab, 1 Refill(s), Pharmacy: [facility] Active 08/13/2017 [facility] simvastatin 20 mg oral tablet 20 mg=1 tab, PO, Daily, # 90 tab, 1 Refill(s), [id number] Long[facility] Active 07/11/2017 [facility] losartan 100 mg oral tablet 100 mg=1 tab, PO, Daily, # 90 tab, 1 Refill(s), [id number] Active 07/11/2017 [facility] sertraline 50 mg oral tablet 50 mg=1 tab, PO, Daily, # 90 tab, 1 Refill(s), [facility] [id number] No Long[facility] Active 07/11/2017 [facility] metoprolol tartrate 50 mg oral tablet 50 mg=1 tab, PO, BID, # 180 tab, 1 Refill(s), [facility] [id number] No Long[facility] Active 07/11/2017 [facility] Hydrochlorothiazide 25 MG Oral Tablet 25 mg=1 tab, PO, Daily, # 90 tab, 1 Refill(s), [facility] [id number] No Long[facility] Active 07/11/2017 [facility] Hydralazine Hydrochloride 25 MG Oral Tablet 25 mg=1 tab, PO, Q8H, as needed if SBP>170 and DBP>100, # 270 tab, 1 Refill(s), Pharmacy: [facility] [id number] No Longer Active 07/11/2017 [facility] metoprolol tartrate 50 mg oral tablet 50 mg=1 tab, PO, BID, 0 Refill(s) Active 04/18/2017 [facility] Hydralazine Hydrochloride 25 MG Oral Tablet 25 mg=1 tab, PO, Q8H, as needed if SBP>170 and DBP>100, 0 Refill(s) Active 04/18/2017 [facility] Ergocalciferol 1 capsule Orally Active [address] UNIT Orally once a week [facility] 04/21/2015 [facility] HydrOXYzine HCl as directed Orally Active 10 mg Orally every 8 hrs as needed [facility] 04/21/2015 [facility] Ciprofloxacin HCl 1 tablet Orally Active 500 mg Orally Twice a day [facility] 04/21/2015 [facility] Sertraline HCl 1 tablet Orally Active 50 MG Orally Once a day [facility] Hydrochlorothiazide 1 tablet Orally Active 25 MG Orally Once a day [facility] Simvastatin 1 tablet in the evening Orally Active 20 mg Orally Once a day [facility] Losartan Potassium 3 tablets Orally Active 25 MG Orally Once a day [facility] Metoprolol Tartrate 1 tablet Orally Active 25 MG Orally Twice a day [facility] Sertraline HCl 1 tablet Orally Active 100 mg Orally Once a day [facility] Clonazepam 1 tablet Orally No Longer Active 0.5 MG Orally as needed (prn) [facility] Allergies, Adverse Reactions, Alerts Substance Category Reaction Severity Reaction type Status Date Reported Comments Source Trazodone HCl Adverse Reaction Info Not Available Adverse Reaction Active 07/12/2015 [facility] Lisinopril Adverse Reaction Info Not Available Adverse Reaction Active 07/12/2015 [facility] Primary Ambien Assertion Drug allergy Active [facility] lisinopril Assertion Drug allergy Active [facility] TraZODone Hydrochloride Assertion Drug allergy Active [facility] Immunizations Immunization Date Given Site Status Last Updated Comments Source pneumococcal 13-valent vaccine<sup>1</sup> 04/18/2017 Left Deltoid completed [facility] Result Comment: Patient waited 15 minutes, no allergic reaction. [facility] Results No Data Provided for This Section Pathology Reports No Data Provided for This Section Diagnostic Reports No Data Provided for This Section Consultation Notes No Data Provided for This Section Discharge Summaries No Data Provided for This Section History and Physicals No Data Provided for This Section Vital Signs Vital Sign Value Date Comments Source BMI Calculated 29.99 08/13/2018 [facility] Weight 69.659 08/13/2018 [facility] Height 152.4 cm 08/13/2018 [facility] Systolic [...] [facility] Weight 153.2 07/12/2015 [facility] Height 60 07/12/2015 [facility] Temperature Oral (F) 98.5 F 07/12/2015 [facility] Primary Heart Rate 73 07/12/2015 [facility] Primary Diastolic (mm Hg) 83 07/12/2015 [facility] Primary Systolic (mm Hg) 169 07/12/2015 [facility] Primary Weight 154.0 04/21/2015 [facility] Primary Height 60 04/21/2015 [facility] Primary Temperature Oral (F) 98.7 F 04/21/2015 [facility] Primary Heart Rate 96 04/21/2015 [facility] Primary Diastolic (mm Hg) 78 04/21/2015 [facility] Primary Systolic (mm Hg) 126 04/21/2015 [facility] Primary Weight 152.9 04/12/2015 [facility] Primary Height 60 04/12/2015 [facility] Primary Temperature Oral (F) 98.5 F 04/12/2015 [facility] Primary Heart Rate 82 04/12/2015 [facility] Primary Diastolic (mm Hg) 80 04/12/2015 [facility] Primary Systolic (mm Hg) 136 04/12/2015 [facility] Primary Encounters Location Location Details Encounter Type Encounter Number Reason For Visit Attending Provider ADM Date DC Date Status Source [facility] New patient here to est care [id number] 04/12/2015 04/12/2015 [facility] New patient here to est care [id number] 04/12/2015 04/12/2015 [facility] New patient here to est care [id number] 04/12/2015 04/12/2015 [facility] Primary Care patient here to follow up on labs [id number] 04/21/2015 04/21/2015 [facility] Primary Care patient here to follow up on labs [id number] 04/21/2015 04/21/2015 [facility] Primary [facility] Primary Care Patient here for check up [id number] 07/12/2015 07/12/2015 [facility] Primary Outpatient [id number] BLOSSOM STARK 12/28/2015 [facility] [id number] BLOSSOM STARK 05/01/2016 Active [facility] Outpatient [id number] BLOSSOM STARK 08/28/2016 Active [facility] Outpatient [id number] BLOSSOM STARK 12/27/2016 Active [facility] Outpatient [id number] BLOSSOM STARK 04/18/2017 Active [facility] Primary Care [facility] Outpatient [id number] Blossom Stark 04/18/2017 04/19/2017 [facility] Primary Care [facility] Phone Message [id number] 07/10/2017 07/12/2017 [facility] Outpatient [id number] BLOSSOM STARK 08/13/2017 Active [facility] Primary Care [facility] Outpatient [id number] Blossom Stark 08/13/2017 08/14/2017 [facility] Outpatient [id number] BLOSSOM STARK 12/17/2017 Active [facility] Primary Care [facility] Outpatient [id number] Blossom Stark 12/17/2017 12/18/2017 [facility] Primary Care [facility] Phone Message [id number] 01/09/2018 01/11/2018 [facility] Outpatient [id number] BLOSSOM STARK 04/15/2018 Active [facility] Primary Care [facility] Outpatient [id number] Blossom Stark 04/15/2018 04/16/2018 [facility] Outpatient [id number] BLOSSOM STARK 08/13/2018 Active [facility] Primary Care [facility] Outpatient [id number] Blossom Stark 08/13/2018 08/14/2018 [facility] Primary Care [facility] Phone Message [id number] 09/06/2018 09/08/2018 [facility] Primary Care [facility] Between Visit [id number] 11/02/2018 11/03/2018 [facility] Outpatient [id number] BLOSSOM STARK 12/17/2018 Active [facility] Primary Care [facility] Ambulatory Pre-Reg [id number] Zhihao Heather 12/17/2018 12/17/2018 [facility] Procedures Procedure Code Date Perfomer Comments Source Replacement of cardiac pacemaker [id number] 03/15/2018 [facility] Mammogram [id number] 09/17/2017 [facility] Pacemaker care [id number] [facility] Partial hysterectomy [id number] [facility] Assessment and Plan No Data Provided for This Section Plan of Care No Data Provided for This Section Social History Social History Date Source Social History TypeResponse Substance Abuse Use: None. Exercise Exercise duration: 30. Exercise frequency: 5-6 times/week. Exercise type: Walking. Alcohol Never Smoking Status Never smoker; Type: Cigarettes; Exposure to Tobacco Smoke None; Cigarette Smoking Last 365 Days No; Reg Smoking Cessation Counseling No entered on: 08/13/18 08/13/2018 [facility] Social History ElementQualifiersDate Reported Tobacco Use: . Are you a: [...] alcohol? . Status: No Jul 12, 2015 07/12/2015 [facility] Primary Family History No Data Provided for This Section Advance Directives No Data Provided for This Section Functional Status No Data Provided for This Section
--- OUTSIDE RECORDS SUMMARY | 2019-02-10 12:06 | XMS REPORT | Summary of Care ---
Author Author [facility] Organization [facility] Address Unknown Phone Unavailable Encounter HQ Encntr_alias(FIN) [id number] Date(s): 12/17/18 - 12/17/18 [facility] [address] [facility] [address] [place] [address]- Attending Physician: Blossom Romero MD Vital Signs No data available for this [...]
[2019-02-10 14:07] LABS: BILIRUBIN,URINE NEGATIVE (NEGATIVE); CLARITY,URINE SL CLOUDY (CLEAR); COLOR,URINE YELLOW (YELLOW); KETONES,URINE NEGATIVE (NEGATIVE); LEUKOCYTE ESTERASE ,URINE SMALL (NEGATIVE); NITRITE,URINE NEGATIVE (NEGATIVE); PROTEIN,URINE DIPSTICK TRACE (NEGATIVE); URINE UROBILINOGEN 0.2 mg/dL (0.2 - 1)
[2019-02-10 14:24] LABS: AMORPHOUS SEDIMENT,URINE RARE (FEW); EPITHELIAL CELLS,URINE FEW /LPF; TRANSITIONAL EPI CELLS,URINE RARE
[2019-02-10 14:28] LABS: BASOPHILS % 0.7 % (0.0-1.0); EOSINOPHILS # (AUTO) 0.1 (0.0-0.4); HEMATOCRIT 40.1 % (34.2-44.1); HEMOGLOBIN 13.3 g/dL (12.0-16.0); LYMPHOCYTES # (AUTO) 1.4 (1.0-3.2); LYMPHOCYTES % 22.8 % (18.0-39.1); MEAN CORPUSCULAR HEMOGLOBIN 30.4 pg (28-32); MEAN CORPUSCULAR HGB CONC 33.2 g/dL (31-35); MEAN CORPUSCULAR VOLUME 91.6 fL (81-99); MONOCYTES # (AUTO) 0.5 (0.2-0.8); MONOCYTES % 8.2 % (4.4-11.3); NEUTROPHILS # (AUTO) 4.1 (2.1-6.9); PLATELET COUNT 348 x10e3/uL (140-360); RED BLOOD COUNT 4.38 x10e6/uL (3.6-5.1); RED CELL DISTRIBUTION WIDTH 12.7 % (11.7-14.4)
[2019-02-10 14:36] LABS: INR 0.88; PROTHROMBIN TIME 12.4 seconds (11.9-14.5)
[2019-02-10 14:37] LABS: PARTIAL THROMBOPLASTIN TIME 29.5 seconds (23.8-35.5)
[2019-02-10] MEDS ORDERED: ASPIRIN 81 MG CHEW TAB PO ONE (14:42)
[2019-02-10] MEDS ORDERED: ONDANSETRON HCL INJ 2MG/ML 2ML 2 MG/ML VIAL IV ONE (14:42)
[2019-02-10] MEDS ORDERED: SODIUM CHLORIDE 0.9% 1000ML 1,000 ML IV STA ×2 (14:42)
[2019-02-10] MEDS ORDERED: MECLIZINE HCL 12.5 MG TAB PO ONE (14:45)
[2019-02-10 14:48] LABS: ALANINE AMINOTRANSFERASE 23 IU/L (0-55); ALBUMIN 3.8 g/dL (3.5-5.0); ALKALINE PHOSPHATASE 51 IU/L (40-150); ANION GAP 14.8 mmol/L (8-16); BLOOD UREA NITROGEN 15 mg/dL (7-26); BUN/CREATININE RATIO 19 (6-25); CARBON DIOXIDE 28 mmol/L (22-29); CHLORIDE 100 mmol/L (98-107); CREATINE KINASE 69 IU/L (29-168); CREATININE, SERUM 0.77 mg/dL (0.57-1.11); EST GLOMERULAR FILTRATION RATE > 60 ML/MIN (60-); GLUCOSE 107 mg/dL (74-118); POTASSIUM 3.8 mmol/L (3.5-5.1); SODIUM 139 mmol/L (136-145)
[2019-02-10] MEDS ORDERED: MORPHINE SULFATE 2 MG/ML SYR 1ML IV PRN (15:00)
[2019-02-10] MEDS ORDERED: MECLIZINE HCL 12.5 MG TAB PO PRN (15:00)
[2019-02-10] MEDS ORDERED: CEFTRIAXONE SOD 1 GM/NS 50 ML 50 ML IV ONE (15:00)
[2019-02-10 15:38] LABS: MAGNESIUM 2.5 MG/DL (1.3-2.1)
[2019-02-10 15:59] LABS: THYROID STIMULATING HORMONE 0.798 uIU/mL (0.350-4.940)
--- NOTE | 2019-02-10 16:24 | Diagnostic Imaging Report ---
EXAMINATION: Head CT HISTORY: Dizziness, nausea and vomiting for last 2 days COMPARISON: Head CT 11/22/2018 TECHNIQUE: Multidetector axial images were obtained without contrast from the foramen magnum to the vertex . The images were reconstructed using brain and bone algorithms. Thin section brain images were reformatted into coronal and sagittal planes. Image quality: Motion/streaking artifact limits the evaluation of the skull base and posterior cranial fossa. Dose modulation, iterative reconstruction, and/or weight based adjustment of the mA/kV was utilized to reduce the radiation dose to as low as reasonably achievable. FINDINGS: Parenchyma: 1. Unchanged hypodensity in the mid posterior/superior cerebellum, consistent with chronic ischemic insult. 2. No mass or hemorrhage. No CT evidence of acute territorial vascular insult. Extra-axial spaces:No abnormal density. No extra-axial fluid collections Brain volume: Normal for age. Ventricles: No hydrocephalus or displacement. Arteries: No density suggestive of thrombus. Dural sinuses: No abnormal density. Extra-axial spaces: No abnormal density. Foramen magnum: No mass, Chiari malformation, or basilar invagination. Sella: No obvious mass. Paranasal/mastoid sinuses: Imaged portions unremarkable. Skull/Scalp: No lytic or blastic lesions. No fractures. IMPRESSION: 1. No acute intracranial abnormalities. 2. Unchanged left superior cerebellar chronic ischemic insult compared to head CT of 11/22/2018. Signed by: Dr. Essence Merchant M.D. on 02/10/2019 4:20 PM
--- NOTE | 2019-02-10 16:49 | Diagnostic Imaging Report ---
EXAMINATION: CHEST SINGLE (PORTABLE) INDICATION: Dizziness, vomiting COMPARISON: Chest radiograph of 11/22/2018 FINDINGS: LINES/TUBES:Left chest pacer with leads in unchanged position. LUNGS:The lungs are well-inflated. No focal consolidation or pulmonary edema. PLEURA:No pleural effusion or pneumothorax. MEDIASTINUM:The cardiomediastinal silhouette appears normal in size and shape. BONES/SOFT TISSUES:No acute osseous injury. ABDOMEN:No free air under the diaphragm. IMPRESSION: No focal pneumonia or pulmonary edema. Signed by: Yahaira Sanders MD on 02/10/2019 4:46 PM
[2019-02-10] MEDS: METOPROLOL TARTRATE 25 MG TAB PO SCH ×3 (16:57→21:00)
[2019-02-10] MEDS: FAMOTIDINE 20 MG/2 ML VIAL IV SCH (16:57)
--- OUTSIDE RECORDS SUMMARY | 2019-02-10 17:20 | XMS REPORT | Continuity of Care Document ---
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 Phone [employer] Unavailable Unavailable Problems Problem Status Onset Date Classification Date Reported Comments Source Breast cancer screening Active Diagnosis 04/13/2015 [facility] Hypertension Active Problem 07/14/2015 [facility] Hyperlipidemia Active Problem 07/14/2015 [facility] Pacemaker Active Problem 07/14/2015 [facility] Arthritis Active Problem 07/14/2015 [facility] Chronic pain Active Problem 07/14/2015 [facility] Depression Active Problem 07/14/2015 [facility] Insomnia Active Problem 07/14/2015 [facility] Depression with anxiety Active Problem 07/14/2015 [facility] Low vitamin D level Active Problem 07/14/2015 [facility] Dizziness Active Problem 07/14/2015 [facility] UTI (urinary tract infection) Active Diagnosis 04/22/2015 [facility] Benign hypertension (disorder) Active Problem 12/19/2018 [...] tab, PO, Daily, # 90 tab, Pharmacy: [facility] 11/02/[facility] simvastatin 20 mg oral tablet =1 tab, PO, Daily, # 90 tab, Pharmacy: [facility] Active 11/02/2018 [facility] Metoprolol Tartrate 50 mg oral tablet =1 tab, PO, BID, # 180 tab, Pharmacy: [facility] Active 11/02/2018 [facility] simvastatin 20 mg oral tablet 20 mg=1 tab, PO, Daily, # 90 tab, 1 Refill(s), Pharmacy: [facility] No Longer Active 04/15/2018 [facility] sertraline 50 mg oral tablet 50 mg=1 tab, PO, Daily, # 90 tab, 1 Refill(s), Pharmacy: [facility] No Longer Active 04/15/2018 [facility] Metoprolol Tartrate 50 mg oral tablet 50 mg=1 tab, PO, BID, # 180 tab, 1 Refill(s), Pharmacy: [facility] No Longer Active 04/15/2018 [facility] losartan 100 mg oral tablet 100 mg=1 tab, PO, Daily, # 90 tab, 1 Refill(s), Pharmacy: [facility] Active 04/15/2018 [facility] Hydrochlorothiazide 25 MG Oral Tablet 25 mg=1 tab, PO, Daily, # 90 tab, 1 Refill(s), Pharmacy: [facility] No Longer Active 04/15/2018 [facility] Hydralazine Hydrochloride 25 MG Oral Tablet 25 mg=1 tab, PO, Q8H, as needed if SBP>170 and DBP>100, # 270 tab, 1 Refill(s), Pharmacy: [facility] Active 04/15/2018 [facility] Clobetasol Propionate 0.0005 MG/MG Topical Ointment 1 appl, TOP, Daily, # 30 gm, 1 Refill(s), [id number]2017 [facility] simvastatin 20 mg oral tablet 20 mg=1 tab, PO, Daily, # 90 tab, 1 Refill(s), Pharmacy: [facility] Active 08/13/2017 [facility] sertraline 50 mg oral tablet 50 mg=1 tab, PO, Daily, # 90 tab, 1 Refill(s), Pharmacy: [facility] Active 08/13/2017 [facility] metoprolol tartrate 50 mg oral tablet 50 mg=1 tab, PO, BID, # 180 tab, 1 Refill(s), Pharmacy: [facility] Active 08/13/2017 [facility] losartan 100 mg oral tablet 100 mg=1 tab, PO, Daily, # 90 tab, 1 Refill(s), Pharmacy: [facility] Active 08/13/2017 [facility] Hydrochlorothiazide 25 MG Oral Tablet 25 mg=1 tab, PO, Daily, # 90 tab, 1 Refill(s), Pharmacy: [facility] Active 08/13/2017 [facility] Hydralazine Hydrochloride 25 MG Oral Tablet 25 mg=1 tab, PO, Q8H, as needed if SBP>170 and DBP>100, # 270 tab, 1 Refill(s), Pharmacy: [facility] Active 08/13/2017 [facility] simvastatin 20 mg oral tablet 20 mg=1 tab, PO, Daily, # 90 tab, 1 Refill(s), [facility] No Longer Active 07/11/2017 [facility] losartan 100 mg oral tablet 100 mg=1 tab, PO, Daily, # 90 tab, 1 Refill(s), [facility] 07/11/2017 [facility] sertraline 50 mg oral tablet 50 mg=1 tab, PO, Daily, # 90 tab, 1 Refill(s), [facility] Active 07/11/2017 [facility] metoprolol tartrate 50 mg oral tablet 50 mg=1 tab, PO, BID, # 180 tab, 1 Refill(s), [facility] Active 07/11/2017 [facility] Hydrochlorothiazide 25 MG Oral Tablet 25 mg=1 tab, PO, Daily, # 90 tab, 1 Refill(s), [facility] Active 07/11/2017 [facility] Hydralazine Hydrochloride 25 MG Oral Tablet 25 mg=1 tab, PO, Q8H, as needed if SBP>170 and DBP>100, # 270 tab, 1 Refill(s), Pharmacy: [facility] [address] No Longer Active 07/11/2017 [facility] metoprolol tartrate 50 mg oral tablet 50 mg=1 tab, PO, BID, 0 Refill(s) Active 04/18/2017 [facility] Hydralazine Hydrochloride 25 MG Oral Tablet 25 mg=1 tab, PO, Q8H, as needed if SBP>170 and DBP>100, 0 Refill(s) Active 04/18/2017 [facility] Ergocalciferol 1 capsule Orally Active 98129 UNIT Orally once a week [facility] 04/21/2015 [facility] HydrOXYzine HCl as directed Orally Active 10 mg Orally every 8 hrs as needed [facility] 04/21/2015 [facility] Ciprofloxacin HCl 1 tablet Orally Active 500 mg Orally Twice a day [facility] 04/21/2015 [facility] Sertraline HCl 1 tablet Orally Active 50 MG Orally Once a day [facility] Hydrochlorothiazide 1 tablet Orally Active 25 MG Orally Once a day [facility] Simvastatin 1 tablet in the evening Orally Active 20 mg Orally Once a day [facility] Losartan Potassium 3 tablets Orally Active 25 MG Orally Once a day [facility] Metoprolol Tartrate 1 tablet Orally Active 25 MG Orally Twice a day [facility] Sertraline HCl 1 tablet Orally Active 100 mg Orally Once a day [facility] Clonazepam 1 tablet Orally No Longer Active 0.5 MG Orally as needed (prn) [facility] Allergies, Adverse Reactions, Alerts Substance Category Reaction Severity Reaction type Status Date Reported Comments Source Trazodone HCl Adverse Reaction Info Not Available Adverse Reaction Active 07/12/2015 [facility] Lisinopril Adverse Reaction Info Not Available Adverse Reaction Active 07/12/2015 [facility] Ambien Assertion Drug allergy Active Medical [...] 81 04/18/2017 [facility] Weight 153.2 07/12/2015 [facility] Height 60 07/12/2015 [facility] Temperature Oral (F) 98.5 F 07/12/2015 [facility] Heart Rate 73 07/12/2015 [facility] Diastolic (mm Hg) 83 07/12/2015 [facility] Systolic (mm Hg) 169 07/12/2015 [facility] Weight 154.0 04/21/2015 [facility] Height 60 04/21/2015 [facility] Temperature Oral (F) 98.7 F 04/21/2015 [facility] Heart Rate 96 04/21/2015 [facility] Diastolic (mm Hg) 78 04/21/2015 [facility] Systolic (mm Hg) 126 04/21/2015 [facility] Weight 152.9 04/12/2015 [facility] Height 60 04/12/2015 [facility] Temperature Oral (F) 98.5 F 04/12/2015 [facility] Heart Rate 82 04/12/2015 [facility] Diastolic (mm Hg) 80 04/12/2015 [facility] Systolic (mm Hg) 136 04/12/2015 [facility] Encounters Location Location Details Encounter Type Encounter Number Reason For Visit Attending Provider ADM Date DC Date Status Source [facility] New patient here to est care [id number] 04/12/2015 04/12/2015 [facility] New patient here to est care [id number] 04/12/2015 04/12/2015 [facility] New patient here to est care [id number] 04/12/2015 04/12/2015 [facility] patient here to follow up on labs [id number] 04/21/2015 04/21/2015 [facility] Care patient here to follow up on labs [id number] 04/21/2015 04/21/2015 [facility] Patient here for check up [id number] 07/12/2015 07/12/2015 [facility] Outpatient [id number] [facility]28/2015 [facility] [id number] 05/01/2016 [facility] [id number] [facility] 08/28/2016 [facility] [id number] [facility] 12/27/2016 [facility] [id number] [facility] 04/18/2017 Active [facility] Outpatient [id number] Blossom Stark 04/18/2017 04/19/2017 [facility] Primary Care [facility] Phone Message [id number] 07/10/2017 07/12/2017 [facility] Outpatient [id number] [facility] STARK 08/13/2017 Active [facility] Care [facility] Outpatient [id number] Blossom Stark 08/13/2017 08/14/2017 [facility] Outpatient [id number] [facility] STARK 12/17/2017 Active [facility] Care [facility] Outpatient [id number] Blossom Stark 12/17/2017 12/18/2017 [facility] Primary Care [facility] Phone Message [id number] 01/09/2018 01/11/2018 [facility] Outpatient [id number] [facility] STARK 04/15/2018 Active [facility] Care [facility] Outpatient [id number] Blossom Stark 04/15/2018 04/16/2018 [facility] Outpatient [id number] [facility] STARK 08/13/2018 Active [facility] Care [facility] Outpatient [id number] Blossom Stark 08/13/2018 08/14/2018 [facility] Primary Care [facility] Phone Message [id number] 09/06/2018 09/08/2018 [facility] Primary Care [facility] Between Visit [id number] 11/02/2018 11/03/2018 [facility] Outpatient [id number] [facility] STARK 12/17/2018 Active [facility] Primary Care [facility] Ambulatory Pre-Reg [id number] Zhihao Heather 12/17/2018 12/17/2018 [facility] Procedures Procedure Code Date Perfomer Comments Source Replacement of cardiac pacemaker [id number] 03/15/2018 [facility] Mammogram [id number] 09/17/2017 [facility] Pacemaker care [id number] [facility] Partial hysterectomy [id number] [facility] Assessment and Plan No Data Provided for [...] Cessation Counseling No entered on: 08/13/18 08/13/2018 [facility] Social History ElementQualifiersDate Reported Tobacco Use: . [...] . Status: No Jul 12, 2015 07/12/2015 [facility] Family History No Data Provided for This Section Advance Directives No Data Provided for This Section Functional Status No Data Provided for This Section
--- NOTE | 2019-02-10 17:58 | NUR ---
DR. WRAY AT BEDSIDE FOR PT EVAL, UPDATING ON PLAN OF CARE.
[2019-02-10] MEDS ORDERED: SODIUM CHLORIDE 0.9% 1000ML 1,000 ML ONE (18:03)
--- NOTE | 2019-02-10 19:35 | NUR ---
PACEMAKER INTERROGATION COMPLETED AT BEDSIDE, FORWARDED EXAM TO [employer].
--- NOTE | 2019-02-10 23:03 | NUR ---
Cardiology Consult Dictation# [id number]
[2019-02-11 01:00] LABS: CREATINE KINASE 59 IU/L (29-168)
[2019-02-11 01:04] VITALS: BP 162/82
[2019-02-11 01:40] VITALS: BP 162/82
[2019-02-11] MEDS ORDERED: HYDROCHLOROTHIA25 MG (01:58)
[2019-02-11] MEDS ORDERED: SIMVASTATIN20 MG PO (01:58)
[2019-02-11] MEDS ORDERED: LOSARTAN POTAS100 MG PO (01:58)
[2019-02-11] MEDS ORDERED: ASPIR 8181 MG (01:59)
[2019-02-11] MEDS: FAMOTIDINE 20 MG/2 ML VIAL IV SCH (03:00)
[2019-02-11 03:51] VITALS: BP 146/81
--- NOTE | 2019-02-11 06:01 | Consultation ---
DATE OF CONSULTATION: 02/10/2019 Cardiology Consultation REQUESTING PHYSICIAN: Dr. Montana. REASON FOR CONSULTATION: Dizziness. HISTORY OF PRESENT ILLNESS: This is a 68-year-old woman with history of hypertension, hyperlipidemia, and permanent pacemaker, who presents with complaints of dizziness. The patient reports she has had dizziness off and on for the last two weeks. She reports one episode two weeks ago, which resolved with recurrence yesterday. This was associated with nausea and vomiting. She denies any aggravating or alleviating factors. She did note she had chest pain, while she is vomiting, which she describes it as pressure 5/10 in severity that resolved after she stopped vomiting. No edema, orthopnea, or PND. Of note, she states she had a nuclear stress test five years ago once without evidence of ischemia. REVIEW OF SYSTEMS: Negative except as per HPI. PAST MEDICAL HISTORY: Hypertension, hyperlipidemia, and permanent pacemaker. PAST SURGICAL HISTORY: Hysterectomy. ALLERGIES: PLEASE SEE EMR. MEDICATIONS: Please see medication list. SOCIAL HISTORY: Denies tobacco, alcohol, or illicit drugs. FAMILY HISTORY: Pertinent for status post 3-vessel CABG in mother who of myocardial infarction. PHYSICAL EXAMINATION: VITAL SIGNS: Temperature 98.3 degrees, pulse 78, respiratory rate 20, blood pressure 166/70, oxygen saturation 100%. GENERAL: Well-developed, well-nourished woman, in no acute distress. HEENT: Normocephalic, atraumatic. Pupils equal. No scleral icterus. NECK: Supple. No thyromegaly or cervical lymphadenopathy. No carotid bruits. LUNGS: Clear to auscultation bilaterally. No wheezes or crackles. CARDIOVASCULAR: Normal rate. Regular rhythm. No murmur. Normal S1, S2. ABDOMEN: Soft and nontender. EXTREMITIES: No edema. NEUROLOGIC: Nonfocal exam. LABORATORY DATA: Sodium 139, potassium 3.8, chloride . Troponin less than 0.001. BNP 77.9. WBC 6.1, hemoglobin 13.3, hematocrit 40.1, and platelets 348. CT brain, no acute intracranial abnormality, unchanged left superior cerebellar chronic ischemic insult compared to head CT on 11/22/2018. IMPRESSION: 1. Dizziness. 2. Hypertension. 3. Hyperlipidemia. 4. Permanent pacemaker. RECOMMENDATIONS: Trend cardiac biomarkers to rule out myocardial infarction. Monitor on telemetry pacemaker interrogation with normal function. No arrhythmias documented. Monitored on telemetry for further episodes. Carotid Doppler and echocardiogram to evaluate for cardiac etiology of patient's syncope, although symptom presentation is not consistent. Check orthostatic vitals. The patient's chest pain is atypical if she ruled out for myocardial infarction. No further cardiac evaluation can be performed as an outpatient. Thank you for this consult. We will continue to follow. Stephanie Rice MD [facility] /[id number]
[2019-02-11 08:00] VITALS: BP 162/90
[2019-02-11 08:25] LABS: BASOPHILS % 0.7 % (0.0-1.0); EOSINOPHILS # (AUTO) 0.3 (0.0-0.4); EOSINOPHILS % 5.6 % (0.0-6.0); HEMATOCRIT 36.6 % (34.2-44.1); HEMOGLOBIN 12.1 g/dL (12.0-16.0); LYMPHOCYTES # (AUTO) 2.2 (1.0-3.2); LYMPHOCYTES % 39.6 % (18.0-39.1); MEAN CORPUSCULAR HEMOGLOBIN 30.6 pg (28-32); MEAN CORPUSCULAR HGB CONC 33.1 g/dL (31-35); MEAN CORPUSCULAR VOLUME 92.7 fL (81-99); MONOCYTES # (AUTO) 0.4 (0.2-0.8); MONOCYTES % 6.3 % (4.4-11.3); NEUTROPHILS # (AUTO) 2.7 (2.1-6.9); NEUTROPHILS % 47.6 % (38.7-80.0); PLATELET COUNT 299 x10e3/uL (140-360); RED BLOOD COUNT 3.95 x10e6/uL (3.6-5.1); RED CELL DISTRIBUTION WIDTH 12.8 % (11.7-14.4)
[2019-02-11 08:35] LABS: CREATINE KINASE 64 IU/L (29-168)
[2019-02-11 08:37] LABS: ALANINE AMINOTRANSFERASE 19 IU/L (0-55); ALBUMIN 3.1 g/dL (3.5-5.0); ALKALINE PHOSPHATASE 50 IU/L (40-150); BLOOD UREA NITROGEN 18 mg/dL (7-26); BUN/CREATININE RATIO 24 (6-25); CARBON DIOXIDE 27 mmol/L (22-29); CHLORIDE 106 mmol/L (98-107); CHOL/HDL RATIO 4.3 (3.0-3.6); CHOLESTEROL 160 MD/DL (0-199); CREATININE, SERUM 0.76 mg/dL (0.57-1.11); EST GLOMERULAR FILTRATION RATE > 60 ML/MIN (60-); GLUCOSE 93 mg/dL (74-118); HDL CHOLESTEROL 37 MG/DL (40-60); LDL CHOLESTEROL 95 MG/DL (60-130); MAGNESIUM 2.3 MG/DL (1.3-2.1); PHOSPHORUS 3.5 MG/DL (2.3-4.7); SODIUM 141 mmol/L (136-145); TRIGLYCERIDES 140 MG/DL (0-149)
[2019-02-11] MEDS: METOPROLOL TARTRATE 25 MG TAB PO SCH (09:00)
[2019-02-11] MEDS ORDERED: ASPIRIN 81 MG ENTERIC COATED PO SCH (09:00)
[2019-02-11] MEDS ORDERED: FAMOTIDINE 20 MG/2 ML VIAL IV SCH (09:00)
[2019-02-11] MEDS ORDERED: METOPROLOL TART50 MG PO (09:23)
[2019-02-11 09:30] VITALS: BP 162/90
[2019-02-11] MEDS ORDERED: METOPROLOL TARTRATE 50 MG TAB PO SCH (10:30)
[2019-02-11] MEDS ORDERED: MECLIZINE HCL12.5 MG PO (11:04)
[2019-02-11 12:00] VITALS: BP_SYST 142; BP_SYST 145; BP_DIAS 75; BP_DIAS 76; BP_DIAS 79
[2019-02-11] MEDS ORDERED: MECLIZINE HCL 12.5 MG TAB PO SCH (12:00)
--- NOTE | 2019-02-11 12:39 | NUR ---
Paged Dr. Fong at this time to report orthostatic vital signs. Awaiting return call.
--- NOTE | 2019-02-11 13:54 | NUR ---
Paged Dr. Fong again at this time. Left message with orthostatic vital signs included. Awaiting return call for clearance for discharge.
--- NOTE | 2019-02-11 14:15 | NUR ---
Visit made by the Spiritual Care Department Pastoral Visitor, Yara Leone. PV provided pastoral presence, hospitality, and supportive listening. Pastoral Visitor informed pt/family of the scope of [employer] and availability. MARKO LEOS Rooter Operator Spiritual Care Department O: [phone] Pager: [phone] ([phone] number calling from)
--- NOTE | 2019-02-11 14:48 | NUR ---
Attempted to call Dr. Montana at this time so get clearance for patient to be discharged due to Dr. Fong not answering pages. Dr. Montana did not answer. Went through chain of command to verify if discharge is permissible. Received an ok to discharge.
--- NOTE | 2019-02-11 15:08 | NUR ---
Spoke with Dr. Montana. Received permission to discharge patient at this time.
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
[2019-02-11] MEDS ORDERED: SIMVASTATIN 20 MG TAB PO SCH (21:00)
--- NOTE | 2019-02-12 00:58 | Progress Note ---
DATE: 02/11/2019 Cardiology Progress Note SUBJECTIVE: The patient denies chest pain or shortness of breath. OBJECTIVE: VITAL SIGNS: Temperature 96.2 degrees, pulse 60, respiratory rate 16, blood pressure 152/90, and oxygen saturation 98% on room air. GENERAL: Awake, alert, in no acute distress. LUNGS: Clear to auscultation bilaterally. No wheezes or crackles. CARDIOVASCULAR: Normal rate, regular rhythm. No murmur. Normal S1, S2. ABDOMEN: Soft and nontender. EXTREMITIES: No edema. CARDIAC MEDICATIONS: Metoprolol tartrate 75 mg p.o. q.12 hours, mg p.o. daily, simvastatin 20 mg p.o. at bedtime, losartan 100 mg p.o. daily. LABORATORY DATA: WBC 5.56, hemoglobin 12.1, hematocrit 36.6, platelets 299. Sodium 141, potassium 4, chloride 106, CO2 of 27, BUN 18, and creatinine 0.76. Troponin less than 0.001. Cholesterol 160, LDL 95, HDL 37, triglycerides 140. TELEMETRY: AV paced. IMPRESSION: 1. Dizziness. 2. Hypertension. 3. Hyperlipidemia. 4. Permanent pacemaker. RECOMMENDATIONS: No evidence of marked myocardial infarction on serial cardiac biomarkers, no reasons to explain patient's dizziness on telemetry or on pacemaker interrogation. Carotid doppler revealed elevation at the distal carotid arteries bilaterally, likely secondary vessel tortuosity, but could not rule out due to 70% focal stenosis. Echocardiogram read was delayed secondary to difficulty with transfer of imaging, but no significant valve abnormalities were observed. reviewed. If orthostatic vitals are negative, the patient can be discharged home without further cardiac evaluation. Thank you for this consult. We will continue to follow. Stephanie Rice MD [facility] /[id number]
[2019-02-12] MEDS ORDERED: LOSARTAN POTASSIUM 100 MG TAB PO SCH (09:00)
== END 2019-02-11 15:27 | disposition home or self-care (01) ==
LOC: ER 12:02 → ERHOLD 14:53 → MED/SURG2 02-11 01:28
PROVIDERS: ADMIT Internal Medicine; ATTEND Internal Medicine
DX: R42 Dizziness and giddiness (principal); I10 Essential (primary) hypertension; E78.5 Hyperlipidemia, unspecified; Z95.810 Presence of automatic (implantable) cardiac defibrillator; Z82.49 Family history of ischemic heart disease and other diseases of the circulatory system; Z88.8 Allergy status to other drugs, medicaments and biological substances; I49.5 Sick sinus syndrome
CPT/HCPCS: 36415; 70450; 71045; 80053 ×2; 80061; 81001; 82550 ×2; 82553 ×2; 83735 ×2; 83880; 84100; 84443; 84484 ×2; 85025 ×2; 85610; 85730; 87086; 93005; 93306; 93880; 99284; G0378 ×2; J0696; J2405; J7030; J8597 ×2